=== PATIENT | female | born 1960 | race Caucasian/White ===

== ENCOUNTER 2016-10-29 15:26 | Inpatient (IN) | payer SELFPAY ==
[~2016-10-29] VITALS: Ht 165.1 cm; Wt 71.0 kg
[~2016-10-29 15:26] MED LIST: ALDA100T PO; CHLO5CAP3 PO; FURO1TAB93 PO
[2016-10-29 15:40] VITALS: BP 129/60; PULSE 134; RESP 19; TEMP 99.5; O2SAT 98
--- NOTE | 2016-10-29 15:55 | PD ---
HPI Chief Complaint: Psychiatric Symptoms Time Seen by Provider: 15:51 Travel History International Travel<30 days: No Contact w/Intl Traveler<30days: No Traveled to known affect area: No History of Present Illness HPI History of present illness is limited secondary to patient's clinical condition and altered mental status. Patient is obviously intoxicated on some type of drug. She appears to be having visual and auditory hallucinations as she is looking away from me, and saying there are people in the room, and she is having bizarre conversations with them. This is a 56-year-old female that presents under Yee act by law enforcement. According to the law enforcement report the patient "was walking in and out of traffic and waving her arms. She was screaming as she walked. She was attempting to climb a fence to a pool deck at 7:30 [facility]. He took a hold of her arm and she resisted attempts to restrain her. She advised she has not taken her Seroquel." When asked if she is suicidal or homicidal, if she uses drugs, or drinks alcohol she says "no." PFSH Past Medical History Arthritis: No Asthma: No Cancer: No Cardiovascular Problems: No Cirrhosis: Yes COPD: No Cerebrovascular Accident: No Endocrine: No GERD: No Genitourinary: No Headaches: No Hepatitis: No Hiatal Hernia: No Immune Disorder: No Kidney Stones: No Musculoskeletal: No Neurologic: No Psychiatric: No Reproductive: No Respiratory: No Migraines: No Renal Failure: No Seizures: No Sleep Apnea: No Ulcer: No ?: Unknown Menopausal: Yes : 2 Para: 2 Tubal Ligation: Yes Past Surgical History Abdominal Surgery: No Cardiac Surgery: No Cholecystectomy: No Ear Surgery: No Endocrine Surgery: No Eye Surgery: No Genitourinary Surgery: Yes Gynecologic Surgery: Yes (tubal ligation) Oral Surgery: No Thoracic Surgery: No Other Surgery: Yes Social History Alcohol Use: Yes Tobacco Use: No Substance Use: No Allergies-Medications (Allergen,Severity, Reaction): Coded Allergies: hornet venom (Unverified Allergy, Severe, 10/02/16) Reported Meds & Prescriptions Reported Meds & Active Scripts Active Reported Aldactone (Spironolactone) 100 Mg Tab 100 Mg PO DAILY Librium (Chlordiazepoxide) 5 Mg Cap 5 Mg PO Lasix (Furosemide) 40 Mg Tab 40 Mg PO DAILY Review of Systems ROS Limitations: Clinical Condition, Intoxication, Altered Mental Status Except as stated in HPI: all other systems reviewed are Neg Physical Exam Narrative GENERAL: Well-nourished, well-developed female patient, in no acute distress SKIN: Warm and dry. HEAD: Atraumatic. Normocephalic. EYES: Pupils equal and round. ENT: Mucosa pink and moist. NECK: Supple. Trachea midline. CARDIOVASCULAR: Regular rate and rhythm. No murmur appreciated. RESPIRATORY: No accessory muscle use. Clear to auscultation. Breath sounds equal bilaterally. GASTROINTESTINAL: Abdomen soft, non-tender, nondistended. Hepatic and splenic margins not palpable. Bowel sounds are active 4 quadrants. MUSCULOSKELETAL: No obvious deformities. No clubbing. No cyanosis. No edema. NEUROLOGICAL: Awake and alert. Oriented 3. No obvious cranial nerve deficits. Motor grossly within normal limits. Normal speech. Moves all extremities. 5/5 strength to all extremities. PSYCHIATRIC: Delusional thought processes. No hallucinations. Data Data Last Documented VS Vital Signs Date Time Temp Pulse Resp B/P (MAP) Pulse Ox O2 Delivery O2 Flow Rate FiO2 10/29/16 17:42 109 15 95 Room Air 10/29/16 15:40 99.5 Orders Orders Complete Blood Count With Diff (10/29/16 15:54) Basic Metabolic Panel (Bmp) (10/29/16 15:54) Psych Screen (10/29/16 15:54) Sodium Chloride 0.9% Flush (Ns Flush) (10/29/16 16:00) Drug Screen, Random Urine (10/29/16 15:54) Alcohol (Ethanol) (10/29/16 15:54) Salicylates (Aspirin) (10/29/16 15:54) Tylenol (Acetaminophen) (10/29/16 15:54) Sodium Chlor 0.9% 1000 Ml Inj (Ns 1000 M (10/29/16 16:00) Urinalysis - C+S If Indicated (10/29/16 15:55) Lorazepam Inj (Ativan Inj) (10/29/16 16:30) Lorazepam Inj (Ativan Inj) (10/29/16 17:15) Labs Laboratory Tests Test 10/29/16 16:20 White Blood Count 12.3 TH/MM3 Red Blood Count 3.86 MIL/MM3 Hemoglobin 13.2 GM/DL Hematocrit 37.7 % Mean Corpuscular Volume 97.8 FL Mean Corpuscular Hemoglobin 34.1 PG Mean Corpuscular Hemoglobin Concent 34.9 % Red Cell Distribution Width 13.9 % Platelet Count 189 TH/MM3 Mean Platelet Volume 9.8 FL Neutrophils (%) (Auto) 74.5 % Lymphocytes (%) (Auto) 15.4 % Monocytes (%) (Auto) 8.9 % Eosinophils (%) (Auto) 0.8 % Basophils (%) (Auto) 0.4 % Neutrophils # (Auto) 9.2 TH/MM3 Lymphocytes # (Auto) 1.9 TH/MM3 Monocytes # (Auto) 1.1 TH/MM3 Eosinophils # (Auto) 0.1 TH/MM3 Basophils # (Auto) 0.0 TH/MM3 CBC Comment DIFF FINAL Differential Comment Blood Urea Nitrogen 26 MG/DL Creatinine 2.29 MG/DL Random Glucose 94 MG/DL Calcium Level 9.6 MG/DL Sodium Level 139 MEQ/L Potassium Level 3.7 MEQ/L Chloride Level 102 MEQ/L Carbon Dioxide Level 22.1 MEQ/L Anion Gap 15 MEQ/L Estimat Glomerular Filtration Rate 22 ML/MIN Salicylates Level LESS THAN 1.7 MG/DL Acetaminophen Level LESS THAN 2.0 MCG/ML Ethyl Alcohol Level LESS THAN 3 MG/DL MDM Medical Decision Making Medical Screen Exam Complete: Yes Emergency Medical Condition: Yes Medical Record Reviewed: Yes Differential Diagnosis Medical clearance for psychiatric evaluation, drug intoxication, hallucinations , psychotic Narrative Course Patient presents under Yee act with altered mental status. She appears obviously under the influence of a drug. She is having auditory and visual hallucinations. 183: CBC unremarkable. BUN 26. Creatinine 2.29. Call placed to Dr. Roberts for admission for 23 hour observation. 183: I spoke with Dr. Roberts and the patient will be admitted for 23 observation. Report given. Physician Communication Physician Communication JUDITH Diallo Diagnosis Primary Impression: Altered mental status Qualified Codes: R41.82 - Altered mental status, unspecified Additional Impressions: Medical clearance for psychiatric admission Drug overdose Qualified Codes: T50.904A - Poisoning by unspecified drugs, medicaments and biological substances, undetermined, initial encounter Admitting Information Admitting Physician Requests: Observation Tere Hyde Oct 29, 2016 15:55
[2016-10-29] MEDS ORDERED: SODIUM CHLORIDE 0.9% FLUSH 10 ML FLUSH IVF PRN (16:00)
[2016-10-29] MEDS ORDERED: SODIUM CHLOR 0.9% 1000 ML INJ 1,000 ML IV ONE (16:00)
[2016-10-29] MEDS ORDERED: LORazepam 2 MG/ML VIAL IV PUSH ONE ×2 (16:30→17:15)
[2016-10-29 17:04] LABS: AUTOMATED NEUTROPHIL # 9.2 TH/MM3 (1.8-7.7); BASOPHIL % 0.4 % (0.0-2.0); EOSINOPHIL # 0.1 TH/MM3 (0-0.4); EOSINOPHIL % 0.8 % (0.0-4.0); HEMATOCRIT 37.7 % (35.0-46.0); HEMO FLAGS DIFF FINAL; LYMPH % 15.4 % (9.0-44.0); LYMPHOCYTE # 1.9 TH/MM3 (1.0-4.8); MEAN CELL VOLUME 97.8 FL (80.0-100.0); MEAN CORPUSCULAR HEMOGLOBIN 34.1 PG (27.0-34.0); MEAN CORPUSCULAR HGB CONC 34.9 % (32.0-36.0); MONO % 8.9 % (0.0-8.0); NEUT % 74.5 % (16.0-70.0); PLATELET COUNT 189 TH/MM3 (150-450); RED BLOOD COUNT 3.86 MIL/MM3 (4.00-5.30); RED CELL DISTRIBUTION WIDTH 13.9 % (11.6-17.2); WHITE BLOOD COUNT 12.3 TH/MM3 (4.0-11.0)
[2016-10-29 17:25] LABS: ACETAMINOPHEN LESS THAN 2.0 MCG/ML (10.0-30.0); ALCOHOL LESS THAN 3 MG/DL (0-5); ANION GAP 15 MEQ/L (5-15); BICARBONATE 22.1 MEQ/L (21.0-32.0); BLOOD UREA NITROGEN 26 MG/DL (7-18); CHLORIDE 102 MEQ/L (98-107); GLOMERULAR FILTRATION RATE 22 ML/MIN (>89); POTASSIUM 3.7 MEQ/L (3.5-5.1); SODIUM (NA) 139 MEQ/L (136-145)
[2016-10-29 17:42] VITALS: PULSE 109; RESP 15; O2SAT 95
[2016-10-29 18:44] LABS: BACTERIA, URINE OCC /hpf; BLOOD, URINE TRACE (NEG); COMMENT (UR) CULT NOT INDICATED; CULTURE IF INDICATED CULT NOT INDICATED; GLUCOSE,URINE NEG (NEG); HYALINE CAST, URINE 59 /lpf (RARE); KETONE, URINE 40 mg/dL (NEG); MUCUS URINE MOD /lpf (OCC); NITRITE,URINE NEG (NEG); PH, URINE 5.5 (5.0-8.5); SQUAMOUS EPITHELIAL CELL URINE 2 /hpf (0-5); URINE COLOR YELLOW (YELLW/STRAW)
[2016-10-29] MEDS ORDERED: NALOXONE HCL 0.4 MG/ML AMP IV PRN (20:00)
[2016-10-29] MEDS ORDERED: SODIUM CHLORIDE 0.9% FLUSH 10 ML FLUSH IV FLUSH PRN (20:00)
--- NOTE | 2016-10-29 20:09 | HHI.HP ---
[facility] Unknown Admission Diagnosis altered mental status, drug overdose, psychiatric evaluation Diagnoses: Travel History International Travel<30 Days: No Contact w/Intl Traveler <30 Da: No Traveled to Known Affected Are: No History of Present Illness Patient was brought in anger Yee act by [employer]. Patient at the time of my exam is sedated. When awoken with sternal rub, patient became immediately agitated and moving around and was just talking gibberish. History is therefore extremely limited. As per Yee act paper: "Subject was walking in and out of traffic and waving her arms. She was screaming as she walked. She was attempting to climb a fence to a pool deck at 7:30 [place]. I took hold of her arm and she resisted attempts to restrain her. She advised she has not taken her Seroquel. " Was also report from nursing staff that it was suspected that patient took FLAKKA Patient's urine toxicology is positive for meth amphetamines. Per 2012 notes, patient does have history of portal hypertension, alcoholic cirrhosis of the liver and alcohol dependence. Review of Systems ROS Limitations: Intoxication, Altered Mental Status, Combative, Poor Historian Past Family Social History Past Medical History Portal hypertension Ascites Pancytopenia Liver cirrhosis Diaphragmatic hernia Tobacco abuse Anemia Past Surgical History Tubal ligation Allergies: Coded Allergies: hornet venom (Unverified Allergy, Severe, 10/02/16) Family History Unknown Social History Per ER Physical Exam Vital Signs Vital Signs Date Time Temp Pulse Resp B/P (MAP) Pulse Ox O2 Delivery O2 Flow Rate FiO2 10/29/16 17:42 109 15 95 Room Air 10/29/16 15:40 99.5 134 19 129/60 (83) 98 Room Air Physical Exam GENERAL: This is a disheveled patient, sedated, easily awakens to sternal rub though, it would become agitated. But yet again, easily falls back asleep. SKIN: No rashes, ecchymoses or lesions. Cool and dry. HEAD: Atraumatic. Normocephalic. No temporal or scalp tenderness. EYES: No scleral icterus. No injection or drainage. ENT: Nose without bleeding, purulent drainage or septal hematoma. Airway patent. NECK: Trachea midline. No JVD . Supple, nontender, no meningeal signs. CARDIOVASCULAR: Regular rate and rhythm without murmurs, gallops, or rubs. RESPIRATORY: Clear to auscultation. Breath sounds equal bilaterally. No wheezes , rales, or rhonchi. GASTROINTESTINAL: Abdomen soft, non-tender, nondistended. No guarding. MUSCULOSKELETAL: Extremities without clubbing, cyanosis, or edema. No calf tenderness. NEUROLOGICAL: Sedated, sleeping. Full neurologic exam cannot be performed as patient easily gets agitated when awakened. Moving all 4 limbs. Speech is normal though does not make much sense. Laboratory Laboratory Tests Test 10/29/16 16:20 10/29/16 17:50 White Blood Count 12.3 Red Blood Count 3.86 Hemoglobin 13.2 Hematocrit 37.7 Mean Corpuscular Volume 97.8 Mean Corpuscular Hemoglobin 34.1 Mean Corpuscular Hemoglobin Concent 34.9 Red Cell Distribution Width 13.9 Platelet Count 189 Mean Platelet Volume 9.8 Neutrophils (%) (Auto) 74.5 Lymphocytes (%) (Auto) 15.4 Monocytes (%) (Auto) 8.9 Eosinophils (%) (Auto) 0.8 Basophils (%) (Auto) 0.4 Neutrophils # (Auto) 9.2 Lymphocytes # (Auto) 1.9 Monocytes # (Auto) 1.1 Eosinophils # (Auto) 0.1 Basophils # (Auto) 0.0 CBC Comment DIFF FINAL Differential Comment Blood Urea Nitrogen 26 Creatinine 2.29 Random Glucose 94 Calcium Level 9.6 Sodium Level 139 Potassium Level 3.7 Chloride Level 102 Carbon Dioxide Level 22.1 Anion Gap 15 Estimat Glomerular Filtration Rate 22 Salicylates Level LESS THAN 1.7 Acetaminophen Level LESS THAN 2.0 Ethyl Alcohol Level LESS THAN 3 Urine Color YELLOW Urine Turbidity HAZY Urine pH 5.5 Urine Specific [place] 1.023 Urine Protein 30 Urine Glucose (UA) NEG Urine Ketones 40 Urine Occult Blood TRACE Urine Nitrite NEG Urine Bilirubin NEG Urine Urobilinogen 4.0 Urine Leukocyte Esterase TRACE Urine RBC 2 Urine WBC 4 Urine Squamous Epithelial Cells 2 Urine Amorphous Sediment RARE Urine Bacteria OCC Urine Hyaline Casts 59 Urine Mucus MOD Microscopic Urinalysis Comment CULT NOT INDICATED Urine Opiates Screen NEG Urine Barbiturates Screen NEG Urine Amphetamines Screen POS Urine Benzodiazepines Screen NEG Urine Cocaine Screen NEG Urine Cannabinoids Screen NEG Result Diagram: 10/29/16161910/29/161619 Caprini VTE Risk Assessment Caprini VTE Risk Assessment: Mod/High Risk (score >= 2) Caprini Risk Assessment Model Point Value = 1 Point Value = 2 Point Value = 3 Point Value = 5 Age 41-60 Minor surgery BMI > 25 kg/m2 Swollen legs Varicose veins or History of unexplained or recurrent spontaneous Oral contraceptives or hormone replacement Sepsis (< 1 month) Serious lung disease, including pneumonia (< 1 month) Abnormal pulmonary function Acute myocardial infarction Congestive heart failure (< 1 month) History of inflammatory bowel disease Medical patient at bed rest Age 61-74 Arthroscopic surgery Major open surgery (> 45 min) Laparoscopic surgery (> 45 min) Malignancy Confined to bed (> 72 hours) Immobilizing plaster cast Central venous access Age >= 75 History of VTE Family history of VTE Factor V Leiden Prothrombin [id number] Lupus anticoagulant Anticardiolipin antibodies Elevated serum homocysteine Heparin-induced thrombocytopenia Other congenital or acquired thrombophilia Stroke (< 1 month) Elective arthroplasty Hip, pelvis, or leg fracture Acute spinal cord injury (< 1 month) Prophylaxis Regimen Total Risk Factor Score Risk Level Prophylaxis Regimen 0-1 Low Early ambulation 2 Moderate Order ONE of the following: *Sequential Compression Device (SCD) *Heparin 5000 units SQ BID 3-4 Higher Order ONE of the following medications: *Heparin 5000 units SQ TID *Enoxaparin/Lovenox 40 mg SQ daily (WT < 150 kg, CrCl > 30 mL/min) *Enoxaparin/Lovenox 30 mg SQ daily (WT < 150 kg, CrCl > 10-29 mL/min) *Enoxaparin/Lovenox 30 mg SQ BID (WT < 150 kg, CrCl > 30 mL/min) AND/OR *Sequential Compression Device (SCD) 5 or more Highest Order ONE of the following medications: *Heparin 5000 units SQ TID (Preferred with Epidurals) *Enoxaparin/Lovenox 40 mg SQ daily (WT < 150 kg, CrCl > 30 mL/min) *Enoxaparin/Lovenox 30 mg SQ daily (WT < 150 kg, CrCl > 10-29 mL/min) *Enoxaparin/Lovenox 30 mg SQ BID (WT < 150 kg, CrCl > 30 mL/min) AND *Sequential Compression Device (SCD) Assessment and Plan Assessment and Plan Impression: Intoxication Substance abuse Thrombocytopenia Acute renal failure Plan: IV hydration. At present, would continue to monitor patient. Avoid sedation unless patient becomes quite combative. Follow-up renal function 7 AM. DVT prophylaxis with ambulation. Discussed Condition With The patient, ER provider, and nursing staff Physician Certification 2 Midnight Certification Type: Admission for Inpatient Services Order for Inpatient Services The services are ordered in accordance with Medicare regulations or non- Medicare payer requirements, as applicable. In the case of services not specified as inpatient-only, they are appropriately provided as inpatient services in accordance with the 2-midnight benchmark. Estimated LOS (days): 32 days is the estimated time the patient will need to remain in the hospital, assuming treatment plan goals are met and no additional complications. Post-Hospital Plan: Home Marin Nicole MD Oct 29, 2016 20:09
[2016-10-29] MEDS: SODIUM CHLORIDE 0.9% FLUSH 10 ML FLUSH IV FLUSH SCH (21:09)
[2016-10-29 21:58] VITALS: BP 114/61; PULSE 108; RESP 20; O2SAT 100
[2016-10-30] VITALS (15 sets, daily range): BP systolic 109–135; BP diastolic 58–77; PULSE 78–108; RESP 16–24; TEMP 97.9–98.7; O2SAT 98–100
[2016-10-30] MEDS ORDERED: HALOPERIDOL LACTATE 5 MG/ML AMP IV PUSH ONE (00:15)
[2016-10-30] MEDS ORDERED: LORazepam 2 MG/ML VIAL IV PUSH ONE (00:15)
[2016-10-30] MEDS: SODIUM CHLORIDE 0.9% FLUSH 10 ML FLUSH IV FLUSH SCH ×2 (00:19→20:28)
[2016-10-30] MEDS ORDERED: SODIUM CHLOR 0.9% 1000 ML INJ 1,000 ML IV ONE (00:45)
[2016-10-30 07:10] LABS: AUTOMATED NEUTROPHIL # 2.7 TH/MM3 (1.8-7.7); BASOPHIL % 0.5 % (0.0-2.0); EOSINOPHIL # 0.1 TH/MM3 (0-0.4); EOSINOPHIL % 2.4 % (0.0-4.0); HEMATOCRIT 32.7 % (35.0-46.0); LYMPH % 34.9 % (9.0-44.0); LYMPHOCYTE # 1.8 TH/MM3 (1.0-4.8); MEAN CELL VOLUME 99.2 FL (80.0-100.0); MEAN CORPUSCULAR HEMOGLOBIN 34.4 PG (27.0-34.0); MEAN CORPUSCULAR HGB CONC 34.7 % (32.0-36.0); MONO % 9.8 % (0.0-8.0); NEUT % 52.4 % (16.0-70.0); PLATELET COUNT 93 TH/MM3 (150-450); RED CELL DISTRIBUTION WIDTH 13.9 % (11.6-17.2); WHITE BLOOD COUNT 5.1 TH/MM3 (4.0-11.0)
[2016-10-30 07:17] LABS: HEMO FLAGS AUTO DIFF
[2016-10-30 07:39] LABS: BICARBONATE 22.6 MEQ/L (21.0-32.0); POTASSIUM 3.4 MEQ/L (3.5-5.1)
[2016-10-30 08:01] LABS: PLATELET ESTIMATE SMEAR LOW (NORMAL); PLATELET MORPHOLOGY NORMAL (NORMAL); SCAN/DIFF AUTO DIFF CONFIRMED
[2016-10-30] MEDS: SODIUM CHLOR 0.9% 1000 ML INJ 1,000 ML IV SCH (14:29)
[2016-10-30] MEDS ORDERED: SENNOSIDES 8.6 MG TAB PO PRN (14:30)
[2016-10-30] MEDS ORDERED: ACETAMINOPHEN 325 MG TAB PO PRN ×2 (14:30)
[2016-10-30] MEDS ORDERED: LACTULOSE SYRUP 20 GM/30 ML CUP PO PRN (14:30)
[2016-10-30] MEDS ORDERED: FLUMAZENIL 0.5 MG/5 ML VIAL IV PUSH PRN (14:30)
[2016-10-30] MEDS ORDERED: HALOPERIDOL LACTATE 5 MG/ML AMP IM PRN (14:30)
[2016-10-30] MEDS ORDERED: SODIUM CHLORIDE 0.9% FLUSH 10 ML FLUSH IV FLUSH PRN ×2 (14:30→14:45)
[2016-10-30] MEDS ORDERED: LORazepam 2 MG/ML VIAL IV PUSH PRN ×4 (14:30)
[2016-10-30] MEDS ORDERED: ONDANSETRON HCL 4 MG/2 ML VIAL IVP PRN (14:30)
[2016-10-30] MEDS ORDERED: PROCHLORPERAZINE 25 MG SUPP RECTAL PRN (14:30)
[2016-10-30] MEDS ORDERED: BISACODYL 10 MG SUPP RECTAL PRN (14:30)
[2016-10-30] MEDS ORDERED: LORazepam 2 MG TAB PO PRN (14:30)
[2016-10-30] MEDS ORDERED: MAGNESIUM HYDROXIDE SUSP 30 ML CUP PO PRN (14:30)
[2016-10-30] MEDS ORDERED: NALOXONE HCL 0.4 MG/ML AMP IV PRN (14:30)
[2016-10-30] MEDS ORDERED: traMADol HCL 50 MG TAB PO PRN ×2 (14:30)
--- NOTE | 2016-10-30 14:37 | HHI.PR ---
Subjective Remarks Patient was brought in anger Yee act by [place] [employer]. Patient at the time of my exam is sedated. When awoken with sternal rub, patient became immediately agitated and moving around and was just talking gibberish. History is therefore extremely limited. As per Yee act paper: "Subject was walking in and out of traffic and waving her arms. She was screaming as she walked. She was attempting to climb a fence to a pool deck at 7:30 [place]. I took hold of her arm and she resisted attempts to restrain her. She advised she has not taken her Seroquel. " Was also report from nursing staff that it was suspected that patient took FLAKKA Patient's urine toxicology is positive for meth amphetamines. Per 2012 notes, patient does have history of portal hypertension, alcoholic cirrhosis of the liver and alcohol dependence. 10-30 patient is very slow to respond At the present States was Jonh HUANG said it was year 1916 [place] she was in the hospital at [facility] Very confused we'll consult psychiatry Make sure she has some Ativan available for alcohol withdrawal and or any other medication withdrawal Have discussed with patient and RN patient remains a Yee act Objective Vitals Vital Signs Date Time Temp Pulse Resp B/P (MAP) Pulse Ox O2 Delivery O2 Flow Rate FiO2 10/30/16 12:00 98.2 94 18 118/77 (91) 100 10/30/16 12:00 88 10/30/16 11:28 10/30/16 06:45 100 16 135/59 (84) 98 Room Air 10/30/16 00:20 105 24 134/59 (84) 100 Room Air 10/29/16 21:58 108 20 114/61 (78) 100 Room Air 10/29/16 17:42 109 15 95 Room Air 10/29/16 15:40 99.5 134 19 129/60 (83) 98 Room Air I/O 10/29/16 10/29/16 10/29/16 10/30/16 10/30/16 10/30/16 07:00 15:00 23:00 07:00 15:00 23:00 Intake Total 1000 ml 1250 ml Output Total 400 ml Balance 1000 ml 850 ml Intake Oral 250 ml IV Total 1000 ml 1000 ml Output Urine Total 400 ml # Voids 1 Result Diagram: 10/30/16 0635 10/30/16 0635 Other Results Laboratory Tests Test 10/29/16 16:20 10/29/16 17:50 10/30/16 06:35 White Blood Count 12.3 TH/MM3 5.1 TH/MM3 Red Blood Count 3.86 MIL/MM3 3.30 MIL/MM3 Hemoglobin 13.2 GM/DL 11.3 GM/DL Hematocrit 37.7 % 32.7 % Mean Corpuscular Volume 97.8 FL 99.2 FL Mean Corpuscular Hemoglobin 34.1 PG 34.4 PG Mean Corpuscular Hemoglobin Concent 34.9 % 34.7 % Red Cell Distribution Width 13.9 % 13.9 % Platelet Count 189 TH/MM3 93 TH/MM3 Mean Platelet Volume 9.8 FL 9.8 FL Neutrophils (%) (Auto) 74.5 % 52.4 % Lymphocytes (%) (Auto) 15.4 % 34.9 % Monocytes (%) (Auto) 8.9 % 9.8 % Eosinophils (%) (Auto) 0.8 % 2.4 % Basophils (%) (Auto) 0.4 % 0.5 % Neutrophils # (Auto) 9.2 TH/MM3 2.7 TH/MM3 Lymphocytes # (Auto) 1.9 TH/MM3 1.8 TH/MM3 Monocytes # (Auto) 1.1 TH/MM3 0.5 TH/MM3 Eosinophils # (Auto) 0.1 TH/MM3 0.1 TH/MM3 Basophils # (Auto) 0.0 TH/MM3 0.0 TH/MM3 CBC Comment DIFF FINAL AUTO DIFF Differential Comment AUTO DIFF CONFIRMED Blood Urea Nitrogen 26 MG/DL 20 MG/DL Creatinine 2.29 MG/DL 0.76 MG/DL Random Glucose 94 MG/DL 72 MG/DL Calcium Level 9.6 MG/DL 8.1 MG/DL Sodium Level 139 MEQ/L 138 MEQ/L Potassium Level 3.7 MEQ/L 3.4 MEQ/L Chloride Level 102 MEQ/L 107 MEQ/L Carbon Dioxide Level 22.1 MEQ/L 22.6 MEQ/L Anion Gap 15 MEQ/L 8 MEQ/L Estimat Glomerular Filtration Rate 22 ML/MIN 78 ML/MIN Salicylates Level LESS THAN 1.7 MG/DL Acetaminophen Level LESS THAN 2.0 MCG/ML Ethyl Alcohol Level LESS THAN 3 MG/DL Urine Color YELLOW Urine Turbidity HAZY Urine pH 5.5 Urine Specific [place] 1.023 Urine Protein 30 mg/dL Urine Glucose (UA) NEG mg/dL Urine Ketones 40 mg/dL Urine Occult Blood TRACE Urine Nitrite NEG Urine Bilirubin NEG Urine Urobilinogen 4.0 MG/DL Urine Leukocyte Esterase TRACE Urine RBC 2 /hpf Urine WBC 4 /hpf Urine Squamous Epithelial Cells 2 /hpf Urine Amorphous Sediment RARE Urine Bacteria OCC /hpf Urine Hyaline Casts 59 /lpf Urine Mucus MOD /lpf Microscopic Urinalysis Comment CULT NOT INDICATED Urine Opiates Screen NEG Urine Barbiturates Screen NEG Urine Amphetamines Screen POS Urine Benzodiazepines Screen NEG Urine Cocaine Screen NEG Urine Cannabinoids Screen NEG Platelet Estimate LOW Platelet Morphology Comment NORMAL Objective Remarks GENERAL: Awake alert somewhat oriented talkative and somewhat cooperative, but very slow to respond SKIN: Warm and dry. HEAD: Atraumatic. Normocephalic. EYES: Pupils equal and round. No scleral icterus. No injection or drainage. Extraocular muscles intact ENT: No nasal bleeding or discharge. Mucous membranes pink and moist. Tongue is midline NECK: Trachea midline. No JVD. Neck is supple CARDIOVASCULAR: Regular rate and rhythm. S1-S2 no S3 or S4 no heave or thrill or rub or gallop RESPIRATORY: No accessory muscle use. Clear to auscultation. Breath sounds equal bilaterally. GASTROINTESTINAL: Abdomen soft, non-tender, nondistended. Hepatic and splenic margins not palpable. MUSCULOSKELETAL: Extremities without clubbing, cyanosis, or edema. No obvious deformities. Moves all 4 extremities NEUROLOGICAL: Awake and alert. No obvious cranial nerve deficits. Motor grossly within normal limits. Five out of 5 muscle strength in the arms and legs. Normal speech. PSYCHIATRIC: INAppropriate mood and affect; insight and judgment ABnormal. Procedures None Medications and IVs Current Medications Sodium Chloride (NS Flush) 2 ml UNSCH PRN IVF FLUSH AFTER USING IV ACCESS; Start 10/29/16 at 16:00 Sodium Chloride 1,000 ml @ 999 mls/hr BOLUS ONCE IV Last administered on 10/29 16:22; Start 10/29/16 at 16:00; Stop 10/29/16 at 17:00; Status DC Lorazepam (Ativan Inj) 1 mg ONCE ONCE IV PUSH Last administered on 10/29/16 16:54; Start 10/29/16 at 16:30; Stop 10/29/16 at 16:31; Status DC Lorazepam (Ativan Inj) 1 mg ONCE ONCE IV PUSH Last administered on 10/29/16 17:26; Start 10/29/16 at 17:15; Stop 10/29/16 at 17:16; Status DC Sodium Chloride (NS Flush) 2 ml UNSCH PRN IV FLUSH FLUSH AFTER USING IV ACCESS ; Start 10/29/16 at 20:00 Sodium Chloride (NS Flush) 2 ml BID IV FLUSH Last administered on 10/30/16 00: 19; Start 10/29/16 at 21:00 Naloxone HCl (Narcan Inj) 0.4 mg UNSCH PRN IV SEE LABEL COMMENTS; Start at 20:00 Haloperidol Lactate (Haldol Inj) 2 mg ONCE ONCE IV PUSH Last administered on 00:19; Start 10/30/16 at 00:15; Stop 10/30/16 at 00:16; Status DC Lorazepam (Ativan Inj) 1 mg ONCE ONCE IV PUSH Last administered on 10/30/16 00:18; Start 10/30/16 at 00:15; Stop 10/30/16 at 00:16; Status DC Sodium Chloride 1,000 ml @ 999 mls/hr BOLUS ONCE IV Last administered on 10/30 00:46; Start 10/30/16 at 00:45; Stop 10/30/16 at 01:45; Status DC Urinary Catheter: No Vascular Central Line Catheter: No A/P Problem List: (1) Medical clearance for psychiatric admission ICD Code: Z00.8 - Encounter for other general examination Status: Acute (2) Drug overdose ICD Code: T50.901A - Poisoning by unspecified drugs, medicaments and biological substances, accidental (unintentional), initial encounter Status: Acute (3) Altered mental status ICD Code: R41.82 - Altered mental status, unspecified Status: Acute (4) Amphetamine abuse ICD Code: F15.10 - Other stimulant abuse, uncomplicated (5) Renal failure ICD Code: N19 - Unspecified kidney failure Assessment and Plan Altered mental status from unknown drugs possibly FLAKKA possibly methamphetamines possibly alcohol possibly other unknown substance Continue on [facility] protocol hypokalemia replace by protocol Psychiatric history Renal failure improved with fluids Amphetamine abuse give fluids and protocols [facility] Pepcid for GI prophylaxis Lovenox for DVT prophylaxis Yee act consult psychiatry Problem Qualifiers (1) Drug overdose: Qualified Codes: T50.904A - Poisoning by unspecified drugs, medicaments and biological substances, undetermined, initial encounter (2) Altered mental status: Qualified Codes: R41.82 - Altered mental status, unspecified Joce Levine DO Oct 30, 2016 14:37
[2016-10-30] MEDS ORDERED: POTASSIUM CHLORIDE 20 MEQ CONTROLLED RELEASE TAB PO ONE (14:45)
[2016-10-30] MEDS ORDERED: cloNIDine HCL 0.1 MG TAB PO PRN (14:45)
[2016-10-30] MEDS: FAMOTIDINE 20 MG TAB PO SCH ×2 (15:22→20:28)
[2016-10-30] MEDS: THIAMINE HCL 100 MG TAB PO SCH (15:22)
[2016-10-30] MEDS: MULTIVITAMINS/MINERALS THERAPEUTIC TAB PO SCH (15:22)
[2016-10-30] MEDS: FOLIC ACID 1 MG TAB PO SCH (15:23)
[2016-10-30] MEDS ORDERED: ENOXAPARIN SODIUM 40 MG/0.4 ML SYRINGE SQ SCH (16:00)
[2016-10-30 19:46] LABS: CREATINE KINASE 644 U/L (26-192)
[2016-10-30 19:58] LABS: CKMB 8.8 NG/ML (0.5-3.6)
[2016-10-30] MEDS: DOCUSATE SODIUM 50 MG/SENNA 8.6 MG TAB PO SCH (20:28)
[2016-10-30] MEDS ORDERED: SODIUM CHLORIDE 0.9% FLUSH 10 ML FLUSH IV FLUSH SCH (21:00)
[2016-10-30] MEDS: LORazepam 1 MG TAB PO PRN (23:20)
[2016-10-31] VITALS (17 sets, daily range): BP systolic 105–115; BP diastolic 67–74; PULSE 73–90; RESP 17–18; TEMP 96.7–98.5; O2SAT 97–100
[2016-10-31 01:24] LABS: MAGNESIUM 2.1 MG/DL (1.5-2.5)
[2016-10-31 01:27] LABS: CREATINE KINASE 447 U/L (26-192)
[2016-10-31 01:38] LABS: CKMB 6.3 NG/ML (0.5-3.6)
[2016-10-31] MEDS: SODIUM CHLOR 0.9% 1000 ML INJ 1,000 ML IV SCH ×2 (03:37→10:29)
[2016-10-31] MEDS ORDERED: POTASSIUM CHLORIDE 20 MEQ CONTROLLED RELEASE TAB PO ONE (05:45)
[2016-10-31 07:12] LABS: AUTOMATED NEUTROPHIL # 1.8 TH/MM3 (1.8-7.7); BASOPHIL % 0.7 % (0.0-2.0); EOSINOPHIL # 0.1 TH/MM3 (0-0.4); EOSINOPHIL % 2.2 % (0.0-4.0); HEMO FLAGS DIFF FINAL; LYMPH % 30.5 % (9.0-44.0); LYMPHOCYTE # 0.9 TH/MM3 (1.0-4.8); MEAN CELL VOLUME 99.9 FL (80.0-100.0); MEAN CORPUSCULAR HEMOGLOBIN 34.8 PG (27.0-34.0); MEAN CORPUSCULAR HGB CONC 34.9 % (32.0-36.0); NEUT % 59.6 % (16.0-70.0); PLATELET COUNT 100 TH/MM3 (150-450); RED CELL DISTRIBUTION WIDTH 14.4 % (11.6-17.2)
[2016-10-31] MEDS: LORazepam 1 MG TAB PO PRN (07:21)
[2016-10-31 07:43] LABS: ANION GAP 6 MEQ/L (5-15); AST (GOT) 40 U/L (15-37); BICARBONATE 24.2 MEQ/L (21.0-32.0); BLOOD UREA NITROGEN 13 MG/DL (7-18); CHLORIDE 110 MEQ/L (98-107); GLOMERULAR FILTRATION RATE 105 ML/MIN (>89); MAGNESIUM 1.8 MG/DL (1.5-2.5); POTASSIUM 3.5 MEQ/L (3.5-5.1); SODIUM (NA) 140 MEQ/L (136-145)
[2016-10-31 07:44] LABS: ALT (GPT) 44 U/L (10-53)
[2016-10-31 07:52] LABS: ALKALINE PHOSPHATASE 66 U/L (45-117); FREE T4 1.38 NG/DL (0.76-1.46); TOTAL BILIRUBIN ADULT 0.8 MG/DL (0.2-1.0)
[2016-10-31] MEDS: SODIUM CHLORIDE 0.9% FLUSH 10 ML FLUSH IV FLUSH SCH (09:00)
[2016-10-31] MEDS: DOCUSATE SODIUM 50 MG/SENNA 8.6 MG TAB PO SCH (09:00)
[2016-10-31] MEDS: FOLIC ACID 1 MG TAB PO SCH (09:05)
[2016-10-31] MEDS: THIAMINE HCL 100 MG TAB PO SCH (09:05)
[2016-10-31] MEDS: MULTIVITAMINS/MINERALS THERAPEUTIC TAB PO SCH (09:05)
[2016-10-31] MEDS: FAMOTIDINE 20 MG TAB PO SCH (09:05)
[2016-10-31] MEDS ORDERED: QUEtiapine FUMARATE 25 MG TAB PO SCH (11:15)
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
--- NOTE | 2016-10-31 12:00 | HHI.DS ---
Discharge Summary Admission Date Oct 29, 2016 at 20:09 Discharge Date: Oct 31, 2016 Admitting Diagnosis altered mental status, drug overdose, psychiatric evaluation (1) Medical clearance for psychiatric admission ICD Code: Z00.8 - Encounter for other general examination Status: Acute (2) Drug overdose ICD Code: T50.901A - Poisoning by unspecified drugs, medicaments and biological substances, accidental (unintentional), initial encounter Status: Acute (3) Altered mental status ICD Code: R41.82 - Altered mental status, unspecified Status: Acute (4) Amphetamine abuse ICD Code: F15.10 - Other stimulant abuse, uncomplicated (5) Renal failure ICD Code: N19 - Unspecified kidney failure Procedures None Brief History - From Admission HPI from the admitting physician. Patient was brought in as a Yee act by [place] [employer]. Patient at the time of my exam is sedated. When awoken with sternal rub, patient became immediately agitated and moving around and was just talking gibberish. History is therefore extremely limited. As per Yee act paper: "Subject was walking in and out of traffic and waving her arms. She was screaming as she walked. She was attempting to climb a fence to a pool deck at 7:30 [place] [facility]. I took hold of her arm and she resisted attempts to restrain her. She advised she has not taken her Seroquel. " Was also report from nursing staff that it was suspected that patient took FLAKKA Patient's urine toxicology is positive for meth amphetamines. Per 2012 notes, patient does have history of portal hypertension, alcoholic cirrhosis of the liver and alcohol dependence. CBC/BMP: 10/31/16 0624 10/31/16 0624 Significant Findings Laboratory Tests Test 10/29/16 16:20 10/29/16 17:50 10/30/16 06:35 10/30/16 18:20 White Blood Count 12.3 TH/MM3 (4.0-11.0) Red Blood Count 3.86 MIL/MM3 (4.00-5.30) 3.30 MIL/MM3 (4.00-5.30) Mean Corpuscular Hemoglobin 34.1 PG (27.0-34.0) 34.4 PG (27.0-34.0) Neutrophils (%) (Auto) 74.5 % (16.0-70.0) Monocytes (%) (Auto) 8.9 % (0.0-8.0) 9.8 % (0.0-8.0) Neutrophils # (Auto) 9.2 TH/MM3 (1.8-7.7) Monocytes # (Auto) 1.1 TH/MM3 (0-0.9) Blood Urea Nitrogen 26 MG/DL (7-18) 20 MG/DL (7-18) Creatinine 2.29 MG/DL (0.50-1.00) Estimat Glomerular Filtration Rate 22 ML/MIN (>89) 78 ML/MIN (>89) Salicylates Level LESS THAN 1.7 MG/DL Acetaminophen Level LESS THAN 2.0 MCG/ML Urine Turbidity HAZY (CLEAR) Urine Protein 30 mg/dL (NEG-TRACE) Urine Ketones 40 mg/dL (NEG) Urine Occult Blood TRACE (NEG) Urine Urobilinogen 4.0 MG/DL (LESS THAN Urine Leukocyte Esterase TRACE (NEG) Urine Bacteria OCC /hpf (NONE) Urine Mucus MOD /lpf (OCC) Urine Amphetamines Screen POS (NEG) Hemoglobin 11.3 GM/DL (11.6-15.3) Hematocrit 32.7 % (35.0-46.0) Platelet Count 93 TH/MM3 (150-450) Platelet Estimate LOW (NORMAL) Random Glucose 72 MG/DL (74-106) Calcium Level 8.1 MG/DL (8.5-10.1) Potassium Level 3.4 MEQ/L (3.5-5.1) Total Creatine Kinase 644 U/L (26-192) Creatine Kinase MB 8.8 NG/ML (0.5-3.6) Troponin I LESS THAN 0.02 NG/ML Test 10/31/16 00:55 10/31/16 06:24 Phosphorus Level 2.4 MG/DL (2.5-4.9) 2.3 MG/DL (2.5-4.9) Total Creatine Kinase 447 U/L (26-192) Creatine Kinase MB 6.3 NG/ML (0.5-3.6) Troponin I LESS THAN 0.02 NG/ML White Blood Count 3.0 TH/MM3 (4.0-11.0) Red Blood Count 3.00 MIL/MM3 (4.00-5.30) Hemoglobin 10.4 GM/DL (11.6-15.3) Hematocrit 30.0 % (35.0-46.0) Mean Corpuscular Hemoglobin 34.8 PG (27.0-34.0) Platelet Count 100 TH/MM3 (150-450) Lymphocytes # (Auto) 0.9 TH/MM3 (1.0-4.8) Albumin 2.9 GM/DL (3.4-5.0) Calcium Level 7.9 MG/DL (8.5-10.1) Aspartate Amino Transf (AST/SGOT) 40 U/L (15-37) Chloride Level 110 MEQ/L (98-107) PE at Discharge O. CONSTITUTIONAL/GEN: normally nourished, in NAD. LUNGS: clear A-P, respiratory effort is normal. CARDIOVASCULAR: RR without murmur or gallop. No significant edema. GI/ABD: soft without masses, without organomegaly. PSYCH/MENTAL STATUS: Hallucinating. Pt update on day of discharge Ongoing hallucinations. Patient remains psychotic. Hospital Course 56 Y/O female brought in as a Yee act for altered mental status. Apparently patient took methamphetamines, possibly Tracy or other substance. She presented in acute renal failure. Patient was treated with IVF and renal failure resolved. Hypokalemia corrected. She was followed by psychiatry and discharged to the psychiatric unit. Pt Condition on Discharge: Stable Discharge Disposition: Disc to Psych Care Fac Discharge Time: <= 30 minutes Discharge Instructions DIET: Follow Instructions for: As Tolerated, No Restrictions Activities you can perform: Regular-No Restrictions Discontinued Medications: Chlordiazepoxide Hcl (Librium) 5 Mg Cap 5 MG PO Furosemide (Lasix) 40 Mg Tab 40 MG PO DAILY Spironolactone (Aldactone 100 mg) 100 Mg Tab 100 MG PO DAILY Ulises Farnsworth MD Oct 31, 2016 12:00
[2016-10-31] MEDS ORDERED: HALOPERIDOL LACTATE 5 MG/ML AMP IM PRN (13:00)
[2016-10-31 14:25] LABS: HEMOGLOBIN A1a 1.1 %; HEMOGLOBIN A1b 0.6 %; HEMOGLOBIN Ao 86.7 %; HEMOGLOBIN F 1.5 %; HEMOGLOBIN LA1C 1.8 %; HEMOGLOBIN P3 3.1 %
--- NOTE | 2016-10-31 21:33 | EKG ---
Date Performed: 10/30/2016 Time Performed: 20:36:28 PTAGE: 56 years EKG: Sinus rhythm Normal ECG PREVIOUS TRACING : 10/30/2016 15.19 Compared to prior tracing no significant change DOCTOR: Hilary Archuleta Interpretating Date/Time 10/31/2016 21:30:57
--- NOTE | 2016-10-31 21:48 | EKG ---
Date Performed: 10/30/2016 Time Performed: 15:19:36 PTAGE: 56 years EKG: Sinus rhythm Normal ECG PREVIOUS TRACING : 01/03/2007 10.10 Compared to prior tracing no significant change DOCTOR: Hliary Archuleta Interpretating Date/Time 10/31/2016 21:48:00
== END 2016-10-31 13:50 | DRG 918 ==
LOC: NEPD 15:26 → NEDA 18:39 → OBSVTOIN 20:09 → NEDH 10-30 02:11 → HCIS 10-30 11:42
PROVIDERS: ADMIT Family Medicine; ATTEND Family Medicine
DX: T43.621A Poisoning by amphetamines, accidental (unintentional), initial encounter (principal); N17.9 Acute kidney failure, unspecified; K76.6 Portal hypertension; D69.6 Thrombocytopenia, unspecified; F29 Unspecified psychosis not due to a substance or known physiological condition; R41.82 Altered mental status, unspecified; K70.30 Alcoholic cirrhosis of liver without ascites; F10.20 Alcohol dependence, uncomplicated; E87.6 Hypokalemia; F15.120 Other stimulant abuse with intoxication, uncomplicated; Z59.0 Homelessness
CPT/HCPCS: 80048; 80053; 80307; 81001; 82550; 82552; 82948; 83036; 83735; 84100; 84439; 84443; 84484; 85025; 87040; 93005; 96361; 96374; J1630; J1650; J2060; J7030